=== PATIENT | female | born 1980 | race Two or more races ===

== ENCOUNTER → 2016-10-15 | Outpatient (CLI) | payer OTHER ==
--- NOTE | 2016-10-15 09:53 | US ---
Thyroid Sonography Clinical History: 36-year-old female thought to have an enlarged thyroid gland on physical exam. ICD-10 Diagnostic Code: E04.9. Technique: A linear 12 MHz transducer was used to sonographically evaluate each lobe of the thyroid g land and the isthmus. Color Doppler was also used. Comparison Study: None. Findings: The thyroid gland is normal in size and homogeneous in echotexture, with no solid or cystic mass or unusual hyperemia. The right lobe measures 1.7 x 1.7 x 5.3 cm, and the left lobe measures 1. 7 x 1.3 x 5.2 cm. The isthmus measures 4.2 mm in AP diameter. Cursory evaluation of the cervical lymp h node stations does not reveal any adenopathy. Impression: Normal exam.
== END ==
LOC: BMCIMAGING 08:49
PROVIDERS: ATTEND Physician Assistant Medical
DX: E04.9 Nontoxic goiter, unspecified (principal)
CPT/HCPCS: 76536-PO

== ENCOUNTER 2016-11-29 10:57 | Emergency (ER) | payer OTHER ==
[2016-11-29 11:06] VITALS: O2SAT 97
[2016-11-29] MEDS ORDERED: IOPAMIDOL (ISOVUE 370) 100 ML BTL IV ONE (11:38)
--- NOTE | 2016-11-29 11:43 | EDPHY ---
HPI/HX/ROS/PE/MDM Narrative: CHIEF COMPLAINT: Headache HPI: The patient is a 36 y/o female complaining of a resolved severe headache with associated facial paresthesia following an orgasm during sex last night. She says, "I had an orgasm and the most severe headache of my life. I thought I was dying." During this episode she had associated vomiting, dizziness, and weakness. The pain started to fade after 30 minutes, but then she developed tingling along the left side of her face and left ear pain. She denies associated changes in vision, hearing, or limb weakness or paresthesias. She has never experienced symptoms like this before and has no history of migraines. She denies any trauma during sex. She continues to have mild lingering pain on the left side of her head this morning, which prompted her to come into the ED. REVIEW OF SYSTEMS: Aside from elements discussed in the HPI, a comprehensive 10-point review of systems was reviewed and is negative. PMH: Denies SOCIAL HISTORY: Lives in [place] PHYSICAL EXAM: General:Patient is alert, in no acute distress. ENT:Eyes are normal to inspection. ENT inspection normal. Neck: Normal inspection. Full range of motion. Respiratory:No respiratory distress. Breath sounds normal bilaterally. Cardiovascular: Regular rate and rhythm. Strong peripheral pulses. Normal cap refill. Abdomen:The abdomen is nontender to palpation. There are no peritoneal signs. There are normal bowel sounds. Back: Normal to inspection. No tenderness to palpation. Skin: Normal color. No rash. Warm and dry. Extremities: Normal appearance. Full range of motion. Neuro: Oriented x3. Normal motor function. Normal sensory function. No pronator drift. Face is symmetric. Normal [id number]. ED Course: IV established. BMP ordered. Study: CT of the Head Indication: Headache, paresthesia Results: CT scan of the head was obtained. The results of the study are normal. The study was read by the radiologist, Dr. Mendoza. I viewed the images myself on the PACS system. Study: CTA of the Head Indication: Headache, paresthesia Results: CTA scan of the head was obtained. The results of the study are negative. The study was read by the radiologist, Dr. Mendoza. I viewed the images myself on the PACS system. 1230: Reevaluated patient and discussed work up. Her CTs are negative. She will receive a dose of 30mg IV Toradol here prior to discharge. She's been referred to neurology for follow up this week. Return precautions given. MDM: This patient presents with sudden onset of severe AGUDELO during orgasm last night. Her symptoms are largely resolved at this point and her neurologic exam is normal. We performed CT/CTA of her brain to rule out SAH/aneurysm and these are thankfully negative. I advised the patient that LP would be necessary to fully rule out these diagnoses but she refuses LP. After treatment with Toradol , the patient is now completely asymptomatic. I have low suspicion for CVA, vessel dissection, or venous sinus clot. The patient was referred to Neurology and advised to return to the ED immediately for any worsening of condition or return of symptoms. - Data Points Laboratory Results: Laboratory Results 11/29/16 11:36 11/29/16 11/29/16 11:36 11:28 POC Hgb 15.3 gm/dL gm/dL (12.3-15.9) POC Hct 45 % % (35.5-47.5) POC Sodium 143 mEq/L mEq/L (134-144) Sodium 142 mEq/L mEq/L (134-144) POC Potassium 3.9 mEq/L mEq/L (3.3-5.0) Potassium 4.2 mEq/L mEq/L (3.5-5.2) POC Chloride 105 mEq/L mEq/L (96-108) Chloride 106 mEq/L mEq/L (97-110) Carbon Dioxide 24 mEq/l mEq/l (22-31) Anion Gap 12 mEq/L mEq/L (8-16) POC BUN 17 mg/dL mg/dL (7-23) BUN 17 mg/dL mg/dL (7-23) Creatinine 0.6 mg/dL mg/dL (0.6-1.0) POC Creatinine 0.6 mg/dL mg/dL (0.6-1.2) Estimated GFR > 60 Glucose 90 mg/dL mg/dL (70-100) POC Glucose 94 mg/dL mg/dL (70-100) Calcium 9.6 mg/dL mg/dL (8.5-10.4) Medications Given: Discontinued Medications Sodium Chloride (Ns) 1,000 mls @ 0 mls/hr IV ONCE ONE PRN Reason: Wide Open Stop: 11/29/16 12:39 Last Admin: 11/29/16 13:00 Dose: 1,000 mls Ketorolac Tromethamine (Toradol) 30 mg IVP EDNOW ONE Stop: 11/29/16 12:39 Last Admin: 11/29/16 13:00 Dose: 30 mg Point of Care Test Results: 11/29/16 11:28 POC Sodium 143 POC Potassium 3.9 POC Chloride 105 POC BUN 17 POC Creatinine 0.6 POC Glucose 94 General Time Seen by Provider: 11/29/16 11:07 Initial Vital Signs: Initial Vital Signs Temperature (C) 36.8 C 11/29/16 11:03 Heart Rate 75 11/29/16 11:03 Respiratory Rate 16 11/29/16 11:03 Blood Pressure 150/64 H 11/29/16 11:03 O2 Sat (%) 97 11/29/16 11:03 O2 Delivery Mode Room Air Allergies/Adverse Reactions: Sulfa (Sulfonamide Antibiotics) Allergy (Verified 11/29/16 11:03) Home Medications: Medication Instructions Recorded NK [No Known Home Meds] 11/29/16 Departure - Departure Disposition: Home, Routine, Self-Care Clinical Impression: Orgasmic headache Condition: Good Instructions: Acute Headache (ED) Additional Instructions: 1. Follow up with a neurologist on Thursday. 2. Return to the ED for severe headache, vision changes, weakness or numbness on one side of your body, or other worsening of condition. Referrals: Yoko Cotto DO [Non Staff and Non MD] - As per Instructions Bethany Ge PA [Primary Care Provider] - As per Instructions Report Scribed for: Lorenzo Haider Report Scribed by: Sirisha Brunson Date of Report: 11/29/16 Time of Report: 11:10 Physician Review and Approval Statement: Portions of this note were transcribed by an ED scribe. I personally performed the history, physical exam, and medical decision making; and confirm the accuracy of the information in the transcribed note.
[2016-11-29 12:08] LABS: ANION GAP 12 mEq/L (8-16); CALCIUM 9.6 mg/dL (8.5-10.4); CARBON DIOXIDE 24 mEq/l (22-31); CHLORIDE 106 mEq/L (97-110); CREATININE 0.6 mg/dL (0.6-1.0); GLOMERULAR FILTRATION RATE > 60; GLUCOSE 90 mg/dL (70-100); POTASSIUM 4.2 mEq/L (3.5-5.2); SODIUM 142 mEq/L (134-144)
[2016-11-29] MEDS ORDERED: NS 1,000 ML IV ONE (12:38)
[2016-11-29] MEDS ORDERED: KETOROLAC 30 MG/1 ML SDV IVP ONE (12:38)
[2016-11-29 13:57] VITALS: BP 122/88; PULSE 93; RESP 18; TEMP 98.1
== END 2016-11-29 13:56 | disposition home or self-care (01) ==
DX: G44.82 Headache associated with sexual activity (principal)
CPT/HCPCS: 82947-QW; 96374; J1885; Q9967